=== PATIENT | female | born 1945 | race Caucasian/White ===

== ENCOUNTER 2016-09-04 12:22 | Day surgery (SDC) | payer MEDICARE ==
[~2016-09-04] VITALS: Ht 157.5 cm; Wt 66.8 kg
[~2016-09-04 12:22] MED LIST: ASPI-621 PO; ATOR40TA78 PO; CYAN100T PO; FLUT16SP2 INH; LEVO50TA5 PO; LORA0.5T PO; METO25TA35 PO; NITR0.4T8 SL; OXIT5POW PO; PRAS10TA4 PO; PSYL1PAC9 PO
[2016-09-04 12:57] VITALS: BP 140/90
[2016-09-04] MEDS ORDERED: CLOP75TA22 PO ×2 (13:16→13:19)
[2016-09-04] MEDS ORDERED: METO25TA91 PO (13:19)
[2016-09-04] MEDS ORDERED: PRAV20TA2 PO (13:19)
[2016-09-04 13:54] LABS: ASPARTATE AMINO TRANSFERASE 14 U/L (15-37); BLOOD UREA NITROGEN 13 mg/dL (7-18)
[2016-09-04] MEDS ORDERED: FENTANYL PF 100 MCG/2ML ONE (17:45)
[2016-09-04] MEDS ORDERED: MIDAZOLAM 1 MG/ML, 5ML ONE (17:45)
[2016-09-04] MEDS ORDERED: VERAPAMIL 2.5 MG/ML, 2ML ONE (17:46)
[2016-09-04] MEDS ORDERED: BIVALIRUDIN 250 MG ONE (17:46)
[2016-09-04] MEDS ORDERED: HEPARIN 1,000 UNITS/ML, 10ML ONE (17:46)
[2016-09-04] MEDS ORDERED: LIDOCAINE 2%, 20ML ONE (17:46)
[2016-09-04] MEDS ORDERED: NITROGLYCERIN 0.4 MG BOTTLE (25 TABS) SL PRN (19:00)
[2016-09-04] MEDS ORDERED: FLUTICASONE NASAL SPRAY 16GM NAS PRN (19:00)
[2016-09-04 20:00] VITALS: BP 128/75
[2016-09-04] MEDS ORDERED: PRAVASTATIN 20 MG TABLET PO SCH (21:00)
[2016-09-05] MEDS ORDERED: METOPROLOL SUCCINATE 25 MG TAB.ER.24H PO SCH (06:00)
[2016-09-05] MEDS ORDERED: ASPIRIN 81 MG TABLET EC PO SCH (06:00)
[2016-09-05] MEDS ORDERED: LEVOTHYROXINE 50 MCG TABLET PO SCH (06:00)
[2016-09-05] MEDS ORDERED: CLOPIDOGREL 75 MG TABLET PO SCH (09:00)
== END 2016-09-04 23:12 | disposition home or self-care (01) ==
LOC: CACL 12:22 → 5SO 18:42 → CACL 23:12
PROVIDERS: ATTEND Internal Medicine Cardiovascular Disease
DX: I25.110 Atherosclerotic heart disease of native coronary artery with unstable angina pectoris (principal); I10 Essential (primary) hypertension; E78.5 Hyperlipidemia, unspecified; Z95.5 Presence of coronary angioplasty implant and graft; E78.1 Pure hyperglyceridemia
CPT/HCPCS: 36415; 80053; 93458; C1760; C1894; J2250; J3010; J3490; Q9967; J0583; J1644